=== PATIENT | female | born 1980 | race Caucasian/White ===

== ENCOUNTER 2019-03-09 10:28 | Emergency (ER) | payer OTHER ==
[2019-03-09] MEDS ORDERED: ASPIRIN 81 MG CHEWABLE TAB PO ONE (10:31)
--- NOTE | 2019-03-09 12:45 | EDPHY ---
H & P Time Seen by Provider: 03/09/19 10:57 HPI/ROS: This patient has left-sided chest pain that she described as achy in nature worse with a deep breath, 4/10 in intensity. Symptoms started at 9:15 a.m. This morning at rest at work. She notes no other exacerbating factors. She does recall having this discomfort before. She does have seasonal allergies does notice some coryza recently consistent with prior seasonal allergies. She reports some mild chronic cough in addition and has mild dyspnea associated with her symptoms. She notes no other associated symptoms this time. ROS: Constitutional: No fevers recently. HEENT: Chronic coryza attributed to allergies. No sinus pain. No sore throat. Pulmonary: Chronic cough with mild dyspnea Cardiovascular: Intermittent heart palpitations. No calf swelling or pain. GI: No symptoms Integumentary: No diaphoresis or pallor. No rash. 10 point review of symptoms is performed and otherwise negative with exception of pertinent positives and negatives listed in HPI and ROS Smoking Status: Former smoker Physical Exam: General Appearance: Alert, no distress. Eyes: Pupils equal and round no pallor or injection. ENT, Mouth: Mucous membranes moist. Respiratory: There are no retractions, lungs are clear to auscultation. Cardiovascular: Regular rate and rhythm. No murmur gallop rub. No peripheral edema. No chest wall or breast tenderness is appreciated. Gastrointestinal: Abdomen is soft and nontender, no masses, bowel sounds normal. Neurological: GCS 15. Skin: Warm and dry, no rashes. Musculoskeletal: Neck is supple nontender. Extremities are symmetrical, full range of motion. Psychiatric: Mood and affect are normal DIFFERENTIAL DIAGNOSIS: After history and physical exam differential diagnosis was considered in part for musculoskeletal chest pain, GERD, pleurisy, bronchitis, pulmonary embolism, myocardial ischemic disease, pneumonia, pneumothorax Constitutional: Initial Vital Signs Temperature (C) 37.1 C 03/09/19 10:35 Heart Rate 107 H 03/09/19 10:35 Respiratory Rate 16 03/09/19 10:35 Blood Pressure 178/117 H 03/09/19 10:35 O2 Sat (%) 99 03/09/19 10:35 O2 Delivery Mode Room Air Allergies/Adverse Reactions: [facility] MED Allergy (Uncoded 07/01/13 14:29) Home Medications: Medication Instructions Recorded Prozac 12/15/09 Bcp 07/01/13 AMOXICILLIN TRIHYDRATE [Amoxil] 875 mg PO BID #20 tablet 11/22/14 Levothyroxine 11/22/14 Ondansetron Odt [Zofran Odt 4 mg 4 mg PO TID PRN #6 tab 11/22/14 (RX)] Fluticasone Hfa 220 Mcg [Flovent 2 puffs IH DAILY #1 mdi 03/09/19 220 MCG Hfa MDI (*)] Levalbuterol Inhaler [Xopenex Hfa 2 puffs IH Q4 PRN #1 mdi 03/09/19 Inhaler] Lisinopril 10 mg PO DAILY #30 tablet 03/09/19 MDM/Departure - MDM Diagnostics: 12 lead EKG performed at 10:39 a.m. Shortly after arrival indication chest pain reveals sinus rhythm at 91 Intervals: Normal throughout [place]: Normal throughout ST segments: Normal throughout Overall assessment normal EKG POC studies: Normal CBC and basic metabolic panel. Normal D-dimer normal troponin. Imaging Results: Imaging Impressions Chest X-Ray 03/09/19 12:46 Impression: Mild peribronchial thickening which can be seen with airways disease /bronchitis. Medications Given: Discontinued Medications Aspirin (Aspirin) 324 mg PO EDNOW ONE Stop: 03/09/19 10:32 Last Admin: 03/09/19 10:46 Dose: 324 mg Ketorolac Tromethamine (Toradol) 15 mg IVP EDNOW ONE Stop: 03/09/19 13:23 Last Admin: 03/09/19 13:28 Dose: 15 mg Levalbuterol (Xopenex 1.25mg Neb) 1.25 mg IH EDNOW ONE Stop: 03/09/19 13:20 Last Admin: 03/09/19 13:28 Dose: 1.25 mg ED Course/Re-evaluation: Aspirin 324 p.o. Peak flow checked -420 with the expected of 480 On recheck post Xopenex, patient is 450 Studies: CBC normal, will panel normal, troponin and D-dimer normal Chest x-ray again showed some bronchial findings. Toradol IV with resolution of her chest discomfort Counseled this patient regarding bronchitis reactive airway disease. I think that she has seasonal allergies or viral bronchitis contributing to her symptoms. Answered all her questions prior to discharge home. I suspect that she had musculoskeletal cause of chest pain versus pleurisy and counseled regarding this. She is chest pain-free at the time discharge home. Also counseled regarding her hypertension. She also has a family history of hypertension I think that she warrants treatment for this. She agrees to start lisinopril. - Depart Disposition: Home, Routine, Self-Care Clinical Impression: Acute bronchitis Qualifiers: Bronchitis organism: unspecified organism Qualified Code(s): J20.9 - Acute bronchitis, unspecified Chest pain Qualifiers: Chest pain type: unspecified Qualified Code(s): R07.9 - Chest pain, unspecified Hypertension Qualifiers: Hypertension type: essential hypertension Qualified Code(s): I10 - Essential ( primary) hypertension Condition: Good Instructions: Chest Pain (ED), Chronic Hypertension (ED) Additional Instructions: Diagnoses: 1. Bronchitis 2. Chest pain (resolved) 3. Hypertension Plan: Start lisinopril Xopenex inhaler for cough, wheeze or shortness of breath Flovent steroid inhaler for the next 10 days [id number] antihistamine such as Sonam. Tylenol and/or ibuprofen for chest discomfort as needed For stress-daily exercise in daily relaxation for a minimum of 20 min each Follow up with primary care physician for any ongoing symptoms Return emergency department for any significant worsening despite the treatment plan. Prescriptions: Fluticasone Hfa 220 Mcg [Flovent 220 MCG Hfa MDI (*)] 2 puffs IH DAILY #1 mdi Levalbuterol Inhaler [Xopenex Hfa Inhaler] 2 puffs IH Q4 PRN #1 mdi PRN Reason: Wheezing Lisinopril 10 mg PO DAILY #30 tablet Referrals: Randee Rios MD [Primary Care Provider] - As per Instructions
[2019-03-09] MEDS ORDERED: LEVALBUTEROL 1.25 MG/3 ML DEYVIAL IH ONE (13:19)
[2019-03-09] MEDS ORDERED: KETOROLAC 15 MG/1 ML SDV IVP ONE (13:22)
--- NOTE | 2019-03-09 14:39 | CPEKG ---
Test Reason : OPEN Blood Pressure : / mmHG Vent. Rate : 091 BPM Atrial Rate : 089 BPM P-R Int : 134 ms QRS Dur : 096 ms QT Int : 352 ms P-R-T Axes : 068 028 019 degrees QTc Int : 434 ms Sinus rhythm Confirmed by Guanako Mittal ([id number]) on 03/09/2019 2:38:41 PM Referred By: PHYSICIAN ED Confirmed By:Guanako Mittal
[2019-03-09 17:31] VITALS: BP 156/84
== END 2019-03-09 14:30 | disposition home or self-care (01) ==
LOC: CED 10:28
DX: J20.9 Acute bronchitis, unspecified (principal); R07.9 Chest pain, unspecified; I10 Essential (primary) hypertension; Z87.891 Personal history of nicotine dependence
CPT/HCPCS: 71046-PO; 80048-ER; 84484-ER; 85025-QW-ER; 85379-QW-ER; 96374-ER; 99284-ER; J1885